=== PATIENT | male | born 1995 | race Caucasian/White ===

== ENCOUNTER 2017-08-02 15:53 | Emergency (ER) | payer BC, OTHER ==
[2017-08-02] MEDS ORDERED: CYCLOBENZAPRINE 10 MG TAB ONE (19:29)
--- NOTE | 2017-08-02 20:13 | RAD REPORT ---
EXAM DESCRIPTION: RAD - Shoulder Left 2 View - 08/02/2017 8:04 pm CLINICAL HISTORY: Shoulder pain worsening with movement COMPARISON: None. TECHNIQUE: Internal and external rotation views of the left shoulder were obtained. FINDINGS: There is no fracture or dislocation. Relative widening of the AC joint is not outside of t he range of normal. If there is clinical concern for mild AC joint injury, repeat imaging could be pe rformed with weight-bearing and right shoulder comparison. No spurring at the AC joint. No acute or s uspicious findings. IMPRESSION: No fracture, dislocation or acute shoulder joint finding. Relative widening at the AC joint is not outside of normal range but could be compared with the right shoulder and evaluated with and without weight-bearing if AC separation is of clinical concern.
--- NOTE | 2017-08-02 20:22 | ER ---
Nurse's Notes [facility] Name: Bernardino Ceballos Age: 22 yrs Sex: Male : 1995 Arrival Date: 08/02/2017 Time: 15:57 Bed 10 Private MD: Bettie Valdez Diagnosis: Strain of other muscles, fascia and tendons at shoulder and upper arm level, left arm Presentation: 08/02 16:04 Presenting complaint: Patient states: Woke up with left shoulder pain this AM that is aj worse with movement. Patient seen by PCP this AM and DX muscle strain, given muscle relaxers. Transition of care: patient was not received from another setting of care. Onset of symptoms was August 02, 2017. Care prior to arrival: None. 16:04 Method Of Arrival: Ambulatory aj 16:04 Acuity: TRA 4 aj 20:53 Initial Sepsis Screen: Does the patient meet any 2 criteria? No. Patient's initial fc sepsis screen is negative. Does the patient have a suspected source of infection? No. Patient's initial sepsis screen is negative. Triage Assessment: 16:05 General: Appears in no apparent distress. uncomfortable, Behavior is calm, cooperative, aj appropriate for age. Pain: Complains of pain in anterior aspect of left shoulder and posterior aspect of left shoulder. Neuro: Level of Consciousness is awake, alert, obeys commands, Oriented to person, place, time, situation, Appropriate for age. Respiratory: Airway is patent Trachea midline Respiratory effort is even, unlabored, Respiratory pattern is regular, symmetrical. Derm: Skin is intact, is healthy with good turgor, Skin is pink, warm \T\ dry. normal. Musculoskeletal: Circulation, motion, and sensation intact. Swelling absent Reports pain in anterior aspect of left shoulder and posterior aspect of left shoulder. Historical: - Allergies: 16:05 Peanut; aj - Home Meds: 16:05 None [Active]; aj - PMHx: 16:05 None; aj - PSHx: 16:05 None; aj - Immunization history:: Adult Immunizations up to date. - Social history:: Smoking status: Patient/guardian denies using tobacco. - Family history:: not pertinent. - Hospitalizations: : No recent hospitalization is reported. Screenin:41 Abuse screen: Denies threats or abuse. Denies injuries from another. Nutritional iw screening: No deficits noted. Tuberculosis screening: No symptoms or risk factors identified. Fall Risk None identified. Assessment: 17:41 General: Appears in no apparent distress. Behavior is calm, appropriate for age. Pain: iw Complains of pain in posterior aspect of left shoulder and anterior aspect of left shoulder. Neuro: Level of Consciousness is awake, alert, obeys commands. 17:41 Cardiovascular: Patient's skin is warm and dry. Respiratory: Respiratory effort is iw even, unlabored, Respiratory pattern is regular, symmetrical. GI: No signs and/or symptoms were reported involving the gastrointestinal system. Derm: Skin is pink, warm \T\ dry. normal. Musculoskeletal: Reports pain in posterior aspect of left shoulder and anterior aspect of left shoulder. 18:49 Reassessment: Patient appears in no apparent distress at this time. Patient and/or iw family updated on plan of care and expected duration. Pain level reassessed. Patient is alert, oriented x 3, equal unlabored respirations, skin warm/dry/pink. 19:34 General: Appears in no apparent distress. comfortable, Behavior is calm, cooperative, fc appropriate for age. Pain: Complains of pain in anterior aspect of left shoulder Quality of pain is described as aching, Pain began 4 days ago Is continuous, Aggravated by increased activity, repositioning. Neuro: Level of Consciousness is awake, alert, obeys commands, Oriented to person, place, time, situation. Cardiovascular: No deficits noted. Respiratory: No deficits noted. GI: No deficits noted. : No deficits noted. EENT: No deficits noted. Derm: Skin is pink, warm \T\ dry. Musculoskeletal: Circulation, motion, and sensation intact. Capillary refill < 3 seconds, Range of motion: limited in left shoulder Reports pain in anterior aspect of left shoulder. 20:30 Reassessment: No changes from previously documented assessment. Patient and/or family fc updated on plan of care and expected duration. Pain level reassessed. Patient is alert, oriented x 3, equal unlabored respirations, skin warm/dry/pink. Pt complaining of continued pain. Discussed with Param and pt to get Motrin po. Vital Signs: 16:05 BP 145 / 99; Pulse 92; Resp 16; Temp 98.6; Pulse Ox 99% on R/A; Weight 54.43 kg; Height aj 5 ft. 6 in. (167.64 cm); Pain 9/10; 16:05 Body Mass Index 19.37 (54.43 kg, 167.64 cm) ED Course: 15:57 Patient arrived in ED. mr 15:57 Courtney Bettie is Private Physician. mr 16:05 Triage completed. aj 16:05 Arm band placed on left wrist. Patient placed in waiting room, Patient notified of wait aj time. 16:28 [facility] kav 16:28 Sebastian Sneed MD is Attending Physician. kav 17:30 Padmaja New, RN is Primary Nurse. iw 18:49 Patient has correct armband on for positive identification. iw 18:49 No provider procedures requiring assistance completed. Patient did not have IV access iw during this emergency room visit. 19:24 Primary Nurse role handed off by Padmaja New RN rg2 20:00 Shoulder Left (2 View) XRAY In Process Unspecified. EDMS 20:00 X-ray completed. Portable x-ray completed in exam room. Patient tolerated procedure kc2 well. 20:21 Bettie Valdez is Referral Physician. kav 20:44 Sling applied to left arm. fc Administered Medications: 19:33 Drug: Cyclobenzaprine 10 mg Route: PO; fc 20:44 Follow up: Response: No adverse reaction; Pain is unchanged, physician notified fc 20:45 Drug: Motrin 800 mg Route: PO; fc 20:51 Follow up: Response: No adverse reaction; Medication administered at discharge. fc Outcome: 20:21 Discharge ordered by MD. kav 20:52 Discharged to home ambulatory. fc 20:52 Condition: good 20:52 Discharge instructions given to patient, Instructed on discharge instructions, follow up and referral plans. no drinking with medication, no driving heavy equipment, medication usage, sling use and no lifting weights Demonstrated understanding of instructions, follow-up care, medications, sling care and no lifting weights. Prescriptions given X 2. 20:53 Patient left the ED. fc Signatures: Dispatcher [employer] EDMS Lurdes Silveira rg2 Susana Nunes RN RN Lorraine Virgen FNP FNP kav Rivera, Maria mr FrankjostniCarmel RN RN Padmaja New RN RN Qi Braxton kc2 Corrections: (The following items were deleted from the chart) 18:49 17:41 Neuro: Level of Consciousness is awake, alert, obeys commands, iw iw
--- NOTE | 2017-08-02 20:22 | EDPHYS ---
Physician Documentation [facility] Name: Bernardino Ceballos Age: 22 yrs Sex: Male : 1995 Arrival Date: 08/02/2017 Time: 15:57 Bed 10 Private MD: Jeannette Valdez ED Physician Sebastian Sneed HPI: 08/02 16:28 This 22 yrs old Male presents to ER via Ambulatory with complaints of kav Shoulder Pain. 19:50 The patient or guardian complains of pain, that is acute. left shoulder. Context: The kav problem was sustained at home. Onset: The symptoms/episode began/occurred acutely. Onset: The symptoms/episode began/occurred 4 day(s) ago. Modifying factors: the symptoms are alleviated by robaxin The symptoms are aggravated by lifting weight, movement. Associated signs and symptoms: Pertinent positives: Weakness in left arm and left shoulder Pertinent negatives: chest pain. Severity of symptoms: At their worst the symptoms were mild, just prior to arrival. Treatment prior to arrival includes: prescription medications, robaxin. The patient has not recently seen a physician. pt reports acute left shoulder pain and weakness. pt reports being seen by jeannette sharma this morning for similar symptoms and given rx: robaxin. he reports taking a robaxin \T\ 1500 today with minimal relief. no radiology testing at pcp office. . Historical: - Allergies: 16:05 Peanut; aj - Home Meds: 16:05 None [Active]; aj - PMHx: 16:05 None; aj - PSHx: 16:05 None; aj - Immunization history:: Adult Immunizations up to date. - Social history:: Smoking status: Patient/guardian denies using tobacco. - Family history:: not pertinent. - Hospitalizations: : No recent hospitalization is reported. ROS: 19:54 Constitutional: Negative for fever, chills, and weight loss, Eyes: Negative for injury, kav pain, redness, and discharge, ENT: Negative for injury, pain, and discharge, Neck: Negative for injury, pain, and swelling, Cardiovascular: Negative for chest pain, palpitations, and edema, Respiratory: Negative for shortness of breath, cough, wheezing, and pleuritic chest pain, Abdomen/GI: Negative for abdominal pain, nausea, vomiting, diarrhea, and constipation, Back: Negative for injury and pain, : Negative for injury, bleeding, discharge, and swelling, Skin: Negative for injury, rash, and discoloration, Neuro: Negative for headache, weakness, numbness, tingling, and seizure, Psych: Negative for depression, anxiety, suicide ideation, homicidal ideation, and hallucinations, Allergy/Immunology: Negative for hives, rash, and allergies, Hematologic/Lymphatic: Negative for swollen nodes, abnormal bleeding, and unusual bruising. 19:54 MS/extremity: Positive for pain, of the left arm and left shoulder, Negative for injury or acute deformity, contusion, decreased range of motion, swelling, tingling, warmth. Exam: 19:54 Constitutional: This is a well developed, well nourished patient who is awake, alert, kav and in no acute distress. Head/Face: Normocephalic, atraumatic. Eyes: Pupils equal round and reactive to light, extra-ocular motions intact. Lids and lashes normal. Conjunctiva and sclera are non-icteric and not injected. Cornea within normal limits. Periorbital areas with no swelling, redness, or edema. ENT: Nares patent. No nasal discharge, no septal abnormalities noted. Tympanic membranes are normal and external auditory canals are clear. Oropharynx with no redness, swelling, or masses, exudates, or evidence of obstruction, uvula midline. Mucous membranes moist. Neck: Trachea midline, no thyromegaly or masses palpated, and no cervical lymphadenopathy. Supple, full range of motion without nuchal rigidity, or vertebral point tenderness. No Meningismus. Chest/axilla: Normal chest wall appearance and motion. Nontender with no deformity. No lesions are appreciated. Cardiovascular: Regular rate and rhythm with a normal S1 and S2. No gallops, murmurs, or rubs. Normal PMI, no JVD. No pulse deficits. Respiratory: Lungs have equal breath sounds bilaterally, clear to auscultation and percussion. No rales, rhonchi or wheezes noted. No increased work of breathing, no retractions or nasal flaring. Abdomen/GI: Soft, non-tender, with normal bowel sounds. No distension or tympany. No guarding or rebound. No evidence of tenderness throughout. Back: No spinal tenderness. No costovertebral tenderness. Full range of motion. Skin: Warm, dry with normal turgor. Normal color with no rashes, no lesions, and no evidence of cellulitis. Neuro: Awake and alert, GCS 15, oriented to person, place, time, and situation. Cranial nerves II-XII grossly intact. Motor strength 5/5 in all extremities. Sensory grossly intact. Cerebellar exam normal. Normal gait. Psych: Awake, alert, with orientation to person, place and time. Behavior, mood, and affect are within normal limits. 19:54 Musculoskeletal/extremity: Extremities: noted in the left arm and left shoulder: pain, ROM: limited active range of motion, in the left arm and left shoulder, weakness lue, Circulation is intact in all extremities. Pulses: noted to be 2+ in the left radial artery, left brachial artery and left carotid pulse, Sensation intact. Joints: the left shoulder displays Tendon exam: specific tendon testing normal through active and passive range of motion DVT Exam: No signs of deep vein thrombosis. Vital Signs: 16:05 BP 145 / 99; Pulse 92; Resp 16; Temp 98.6; Pulse Ox 99% on R/A; Weight 54.43 kg; Height aj 5 ft. 6 in. (167.64 cm); Pain 9/10; 16:05 Body Mass Index 19.37 (54.43 kg, 167.64 cm) aj MDM: 20:20 Data reviewed: vital signs, nurses notes, radiologic studies, plain films. [facility] 20:21 Medical screening is not applicable. [facility] 08/02 19:12 Order name: Shoulder Left (2 View) XRAY; Complete Time: 20:20 [facility] 08/02 20:20 Interpretation: No acute disease. [facility] 08/02 20:28 Order name: Sling; Complete Time: 20:43 [facility] Administered Medications: 19:33 Drug: Cyclobenzaprine 10 mg Route: PO; 20:44 Follow up: Response: No adverse reaction; Pain is unchanged, physician notified 20:45 Drug: Motrin 800 mg Route: PO; 20:51 Follow up: Response: No adverse reaction; Medication administered at discharge. Disposition: 08/02/17 20:21 Discharged to Home. Impression: Strain of other muscles, fascia and tendons at shoulder and upper arm level, left arm. - Condition is Stable. - Discharge Instructions: Shoulder Pain, [id number], Shoulder Sprain. - Prescriptions for Ibuprofen 800 mg Oral Tablet - take 1 tablet by ORAL route every 12 hours As needed take with food; 20 tablet. Cyclobenzaprine 10 mg Oral Tablet - take 1 tablet by ORAL route every 8 hours As needed; 30 tablet. - Medication Reconciliation Form, Thank You Letter, Antibiotic Education, Prescription Opioid Use form. - Follow up: Jeannette Valdez; When: 2 - 3 days; Reason: If symptoms return, Recheck today's complaints, Continuance of care, Re-evaluation by your physician. - Problem is new. - Symptoms have improved. Addendum: 08/06/2017 08:07 Co-signature as Attending Physician, Sebastian Sneed MD. r n Signatures: Dispatcher [employer] EDMS Susana Nunes, RN RN Lorraine Ramirez FNP FNP kav Chretien, Felicia RN RN Sebastian Santana MD MD kiln burner: (The following items were deleted from the chart) 08/02 20:53 20:21 08/02/2017 20:21 Discharged to Home. Impression: Strain of other muscles, fascia fc and tendons at shoulder and upper arm level, left arm. Condition is Stable. Forms are Medication Reconciliation Form, Thank You Letter, Antibiotic Education, Prescription Opioid Use. Follow up: Jeannette Valdez; When: 2 - 3 days; Reason: If symptoms return, Recheck today's complaints, Continuance of care, Re-evaluation by your physician. Problem is new. Symptoms have improved. k[place]asper
[2017-08-02] MEDS ORDERED: IBUPROFEN 400 MG TAB ONE (20:46)
== END 2017-08-02 20:53 | disposition home or self-care (01) ==
LOC: ER 15:53
DX: S46.812A Strain of other muscles, fascia and tendons at shoulder and upper arm level, left arm, initial encounter (principal); X50.9XXA Other and unspecified overexertion or strenuous movements or postures, initial encounter; X50.0XXA Overexertion from strenuous movement or load, initial encounter; Y93.89 Activity, other specified; Y92.009 Unspecified place in unspecified non-institutional (private) residence as the place of occurrence of the external cause; Z91.010 Allergy to peanuts
CPT/HCPCS: 99284